=== PATIENT | male | born 1955 | race Caucasian/White ===

== ENCOUNTER → 2016-12-20 | Outpatient (CLI) | payer BC ==
[~2016-12-20] MED LIST: ATOR-24 PO; LISI-787 PO; PRLSR20 PO
[2016-12-20 17:06] LABS: BASO % 0.1 %; BASO ABS # 0.01 K/uL (0-0.2); COMPLETE YES; EOS % 0.5 %; IG% 0.3 %; LYMPH % 18.1 %; LYMPH ABS # 1.34 K/uL (1.2-3.4); MEAN CELL VOLUME 89.7 fL (80-100); MEAN CORPUSCULAR HEMOGLOBIN 31.2 pg (25-34); MEAN CORPUSCULAR HGB CONC 34.8 g/dl (32-36); MEAN PLATELET VOLUME 10.2 fL (7.4-10.4); MONO % 10.4 %; NEUT % 70.6 %; PLATELET COUNT 254 K/uL (130-400); RED BLOOD COUNT 5.13 M/uL (4.7-6.1); WHITE BLOOD COUNT 7.39 K/uL (4.8-10.8)
[2016-12-20 17:07] LABS: URINE APPEARANCE CLEAR (CLEAR); URINE BILIRUBIN NEG (NEG); URINE COLOR YELLOW; URINE EPITHELIAL CELL AUTO 0-5 /lpf (0-5); URINE NITRITE NEG (NEG); URINE SPECIFIC GRAVITY 1.013 (1.000-1.030); UROBILINOGEN NEG (NEG)
[2016-12-20 17:13] LABS: BLOOD UREA NITROGEN 17 mg/dl (7-18); BUN/CREATININE RATIO 14.6 (10-20); CALCIUM 9.3 mg/dl (8.5-10.1); CARBON DIOXIDE 33 mmol/L (21-32); CHLORIDE 105 mmol/L (98-107); GLUCOSE 82 mg/dl (70-99); POTASSIUM 3.8 mmol/L (3.5-5.1); SODIUM 142 mmol/L (136-145)
[2016-12-20 17:15] LABS: MANUAL MICROSCOPIC REQUIRED? NO; REVIEW REQ? NO
== END | disposition home or self-care (01) ==
LOC: C.LABBC 14:52
PROVIDERS: ATTEND Physician Assistant Medical
DX: R42 Dizziness and giddiness (principal)

== ENCOUNTER → 2017-11-14 | Outpatient (CLI) | payer BC ==
[2017-11-14 14:04] LABS: HEMOGLOBIN A1C 5.7 % (4.5-5.6)
[2017-11-14 14:23] LABS: ALBUMIN 4.1 gm/dl (3.4-5.0); ALT/SGPT 31 U/L (12-78); AST/SGOT 15 U/L (15-37); BLOOD UREA NITROGEN 20 mg/dl (7-18); CALCIUM 9.2 mg/dl (8.5-10.1); CARBON DIOXIDE 29 mmol/L (21-32); GLUCOSE 84 mg/dl (70-99); POTASSIUM 3.9 mmol/L (3.5-5.1); SODIUM 138 mmol/L (136-145)
[2017-11-14 14:28] LABS: ALKALINE PHOSPHATASE 84 U/L (45-117); CHOLESTEROL 145 mg/dl (0-200); LDL CHOLESTEROL CALCULATED 78 mg/dl; TOTAL PROTEIN 7.6 gm/dl (6.4-8.2)
== END | disposition home or self-care (01) ==
LOC: C.LABBC 11:29
PROVIDERS: ATTEND Nurse Practitioner Adult Health
DX: R31.9 Hematuria, unspecified (principal); E78.5 Hyperlipidemia, unspecified; I10 Essential (primary) hypertension; Z12.5 Encounter for screening for malignant neoplasm of prostate; R20.2 Paresthesia of skin; R73.09 Other abnormal glucose

== ENCOUNTER → 2017-12-05 | Outpatient (CLI) | payer BC ==
[2017-12-05 15:48] LABS: BLOOD UREA NITROGEN 21 mg/dl (7-18); CALCIUM 9.6 mg/dl (8.5-10.1); CARBON DIOXIDE 31 mmol/L (21-32); CREATININE 1.33 mg/dl (0.60-1.40); GLUCOSE 94 mg/dl (70-99); SODIUM 140 mmol/L (136-145)
== END | disposition home or self-care (01) ==
LOC: C.LABBC 10:36
PROVIDERS: ATTEND Nurse Practitioner Adult Health
DX: I10 Essential (primary) hypertension (principal)

== ENCOUNTER 2021-03-28 22:48 | Observation (INO) ==
[2021-03-28] MEDS ORDERED: SODIUM CHLORIDE 0.9% 1000ML 1,000 ML IV ONE (23:16)
--- NOTE | 2021-03-28 23:21 | Emergency Department Note ---
History of Present Illness General Chief complaint: Hypertension Stated complaint: BLOOD PRESSURE ALL OVER THE PLACE Time Seen by Provider: 03/28/21 23:03 Source: patient and family Mode of arrival: ambulatory Limitations: no limitations History of Present Illness Provider complaint: Elevated blood pressure, sent from urgent care Associated symptoms: + denies other symptoms Treatments prior to arrival: none This is a 66-year-old male presents emergency department after being seen and referred from a local urgent care for elevated blood pressure. Patient with longstanding history of high blood pressure and has been medicated for at least 10 years. Patient's blood pressure controlled by his PCP. Patient states he has been working outside for quite some time this afternoon between 4 and 5pm, noticed afterward that he did not appear well. She took his blood pressure at home and his systolic was in the 150s. Due to concern for this being elevated compared to his normal, they went to urgent care, and there the blood pressure was in the 160s. They also performed an EKG. They were told to come the emergency room for additional evaluation. She feels he has been more fatigued recently however he denies. At the time of this exertion he denies any accompanying headaches, dizziness, vision changes, chest pain, trouble courtney thing, palpitations, abdominal pain, nausea. Denies any recent leg swelling. Patient states he has been taking his blood pressure medication as prescribed and takes all 3 medications in the morning. Patient feels he is drinking water however chimes in that he drinks a lot of iced tea in lieu of water. No recent illness, fevers or chills. Patient did undergo previous evaluation for hematuria including a CT which was revealed in the EMR. Patient with a history of BPH. No other cardiac history, no prior echo. Patient does also take medication for hyperlipidemia. Patient states he has been taking sinus medication recently for nasal congestion. Patient states that is [id number], states it was specific for sinus and not just for seasonal allergies. Did not take any today. Pt seen during a time of high acuity and national emergency pandemic while wearing PPE. Home Medications Medication Instructions Recorded Confirmed Type omeprazole magnesium 20 mg 20 mg PO DAILY 06/07/19 03/29/21 History tablet,delayed release lisinopril 10 mg tablet 10 mg PO DAILY #90 tab 09/05/20 03/29/21 Rx lisinopril 20 1 tab PO DAILY #90 tab 09/05/20 03/29/21 Rx mg-hydrochlorothiazide 25 mg tablet amlodipine 5 mg tablet 5 mg PO DAILY #30 tab 03/03/21 03/29/21 Rx atorvastatin 40 mg PO DAILY 03/29/21 03/29/21 History calcium carbonate [Tums E-X] 300 mg PO DIRECTED PRN 03/29/21 03/29/21 History carvedilol 12.5 mg PO BID #60 tab 03/29/21 Rx Allergies Allergy/AdvReac Type Severity Reaction Status Date / Time No Known Allergies Allergy Verified 03/29/21 00:03 Past Med/Surg History Medical History Acid reflux disease Allergic rhinitis Dyslipidemia [email or web address] Hematuria +1 noted on UA 2016 and 2018. No urology notes in [employer]. Hypertension Obesity (BMI 30-39.9) Paresthesias Prediabetes Surgical History H/O wisdom tooth extraction History of colonoscopy (08/13/15) Adenomatous polyp x 1. F/U 07/2020. 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 and A total of 10 systems reviewed and were otherwise negative Physical Exam Vital Signs Vital Signs - 24 hr 03/28/21 22:52 03/28/21 23:15 03/28/21 23:20 Temperature 36.8 C Temperature Source Temporal Artery Scan Pulse Rate 99 H 94 H 85 Pulse Rate from SpO2 Sensor 92 H 85 Respiratory Rate 20 15 19 Respiratory Effort / Characteristics Non-Labored Respiratory Depth Normal Blood Pressure 209/100 H 180/113 H Blood Pressure Mean 136 135 Pulse Oximetry 96 99 97 Oxygen Delivery Method Room Air Sepsis Recent Fever Within 48 Hours No Sepsis New/Unexplained Change in Mental Status N/A Sepsis Action Taken by Nursing No Action Required 03/28/21 23:30 03/28/21 23:31 03/28/21 23:40 Temperature Temperature Source Pulse Rate 87 86 85 Pulse Rate from SpO2 Sensor 87 87 85 Respiratory Rate 18 18 12 Respiratory Effort / Characteristics Respiratory Depth Blood Pressure 172/95 H Blood Pressure Mean 120 Pulse Oximetry 97 97 95 Oxygen Delivery Method Sepsis Recent Fever Within 48 Hours Sepsis New/Unexplained Change in Mental Status Sepsis Action Taken by Nursing 03/28/21 23:45 03/28/21 23:50 03/29/21 00:00 Temperature Temperature Source Pulse Rate 80 89 86 Pulse Rate from SpO2 Sensor 82 90 85 Respiratory Rate 18 14 18 Respiratory Effort / Characteristics Respiratory Depth Blood Pressure 173/90 H 181/87 H Blood Pressure Mean 117 118 Pulse Oximetry 97 96 95 Oxygen Delivery Method Sepsis Recent Fever Within 48 Hours Sepsis New/Unexplained Change in Mental Status Sepsis Action Taken by Nursing 03/29/21 00:01 Temperature Temperature Source Pulse Rate 85 Pulse Rate from SpO2 Sensor 85 Respiratory Rate 18 Respiratory Effort / Characteristics Respiratory Depth Blood Pressure Blood Pressure Mean Pulse Oximetry 97 Oxygen Delivery Method Sepsis Recent Fever Within 48 Hours Sepsis New/Unexplained Change in Mental Status Sepsis Action Taken by Nursing GENERAL: alert, uncomfortable appearing, well nourished, no distress, non-toxic EYE EXAM: normal conjunctiva, PERRL and EOM's grossly intact, no nystagmus OROPHARYNX: no exudate, no erythema, lips, buccal mucosa, and tongue normal and mucous membranes are moist NECK: supple, no nuchal rigidity, no adenopathy, non-tender LUNGS: Clear to auscultation. Normal chest wall mechanics, no w/r/r HEART: no murmurs, S1 normal and S2 normal ABDOMEN: abdomen soft, non-tender, normo-active bowel sounds, no masses, no rebound or guarding. BACK: Back is symmetrical on inspection and there is no deformity, no midline tenderness, no CVA tenderness. SKIN: no rashes and no bruising UPPER EXTREMITIES: upper extremities are grossly normal. FROM, nml pulses b/l. LOWER EXTREMITIES: No pitting edema. FROM, nml pulses b/l. NEURO EXAM: Normal sensorium, cranial nerves II-XII grossly intact, normal speech, no facial droop, no gross weakness of arms, no gross weakness of legs. Gross sensation intact. No ataxia. Course Course 0045: Patient updated on results at bedside. Patient here is ill-appearing and tremulous. Blood pressure higher compared to prior despite 1 L of fluids and blankets. With additional conversation with he and at bedside, patient admits to exertional symptoms of chest discomfort and shortness of breath which is what prompted him to stop and sit down when the initially found him looking unwell. No prior cardiac evaluation. 0100: Discussed with hospitalist. Administered Medications Discontinued Medications Amlodipine Besylate (Amlodipine Besylate 5 Mg Tab) 5 mg PO DAILY ON LICENSE OF [facility] Stop: 04/28/21 08:59 Last Admin: 03/29/21 08:02 Dose: 5 mg Documented by: [id number] Aspirin (Aspirin 325 Mg Ectab) 325 mg PO NOW STA Stop: 03/29/21 00:51 Last Admin: 03/29/21 01:04 Dose: 325 mg Documented by: [id number] Aspirin (Aspirin 81 Mg Ectab) 81 mg PO QAM SAIMA Stop: 04/28/21 08:59 Last Admin: 03/29/21 08:03 Dose: 81 mg Documented by: [id number] Atorvastatin Calcium (Atorvastatin 40 Mg Tab) 40 mg PO DAILY SAIMA Stop: 04/28/21 08:59 Last Admin: 03/29/21 08:02 Dose: 40 mg Documented by: [id number] Carvedilol (Carvedilol 6.25 Mg Tab) 6.25 mg PO BID ON LICENSE OF [facility] Stop: 04/28/21 08:59 Last Admin: 03/29/21 08:03 Dose: 6.25 mg Documented by: [id number] Carvedilol (Carvedilol 3.125 Mg Tab) 6.25 mg PO NOW ONE Stop: 03/29/21 01:29 Last Admin: 03/29/21 01:34 Dose: 6.25 mg Documented by: [id number] Carvedilol (Carvedilol 3.125 Mg Tab) 3.125 mg PO NOW ONE Stop: 03/29/21 13:31 Last Admin: 03/29/21 14:01 Dose: 3.125 mg Documented by: [id number] Lisinopril/HCTZ (Lisinopril/Hctz 20/25mg 1 Tab) 1 tab PO DAILY SAIMA Stop: 04/28/21 08:59 Last Admin: 03/29/21 08:02 Dose: 1 tab Documented by: [id number] Sodium Chloride (Nss 1000ml) 1,000 mls @ 999 mls/hr IV .Q1H1M ONE Stop: 03/29/21 00:16 Last Infusion: 03/29/21 00:22 Dose: 999 mls/hr Documented by: [id number] Admin: 03/28/21 23:19 Dose: 999 mls/hr Documented by: [id number] Labetalol HCl (Labetalol Hcl Iv 5 Mg/Ml 20ml) 5 mg IV NOW STA Stop: 03/29/21 00:40 Last Admin: 03/29/21 00:50 Dose: 5 mg Documented by: [id number] Cosigned by: [id number] Lisinopril (Lisinopril 10 Mg Tab) 10 mg PO DAILY SAIMA Stop: 04/28/21 08:59 Last Admin: 03/29/21 08:02 Dose: 10 mg Documented by: [id number] Pantoprazole Sodium (Pantoprazole 40 Mg Tab) 40 mg PO DAILY SAIMA Stop: 04/28/21 08:59 Last Admin: 03/29/21 08:03 Dose: 40 mg Documented by: [id number] Medical Decision Making Differential Diagnosis Differential: Benign Hypertension, Hypertensive Urgency/Emergency, Cardiovascular Pathology, Endocrine, Metabolic/Electrolyte, Renal Disease, End organ Damage, amongst other pathologies entertained. Medical Records Attestation: I reviewed the patient's medical records. Home Medications Current Medication List: was personally reviewed by me Laboratory Data Attestation: I reviewed the patient's lab results. Result diagrams: 03/29/21 07:18 03/29/21 07:18 Lab Results 03/28/21 03/28/21 03/28/21 Range/Units 23:16 23:16 23:16 WBC 9.27 (4.8-10.8) K/uL RBC 4.82 (4.7-6.1) M/uL Hgb 15.4 (14.0-18.0) g/dL Hct 44.0 (42-52) % MCV 91.3 (80-100) fL MCH 32.0 (25-34) pg MCHC 35.0 (32-36) g/dL RDW Std Deviation 44.4 (36.4-46.3) fL RDW Coeff of Mayela 13.3 (11.5-14.5) % Plt Count 247 (130-400) K/uL MPV 9.9 (7.4-10.4) fL Immature Gran % (Auto) 0.3 % Neut % (Auto) 77.7 % Lymph % (Auto) 13.1 % [place] % (Auto) 7.8 % Eos % (Auto) 0.9 % Baso % (Auto) 0.2 % Neut # (Auto) 7.21 H (1.4-6.5) K/uL Lymph # (Auto) 1.21 (1.2-3.4) K/uL [place] # (Auto) 0.72 H (0.11-0.59) K/uL Eos # (Auto) 0.08 (0-0.5) K/uL Baso # (Auto) 0.02 (0-0.2) K/uL Immature Gran # (Auto) 0.03 H (0.00-0.02) K/uL Sodium 136 (136-145) mmol/L Potassium 3.5 (3.5-5.1) mmol/L Chloride 105 (98-107) mmol/L Carbon Dioxide 26 (21-32) mmol/L Anion Gap 6.0 (3-11) BUN 24 H (7-18) mg/dl Creatinine 1.43 H (0.6-1.4) mg/dl Est Cr Clr Drug Dosing 64.1 ml/min Est GFR ( Amer) 58.3 ml/min Est GFR (Non-Af Amer) 50.3 ml/min BUN/Creatinine Ratio 16.6 (10-20) Glucose 93 (70-99) mg/dl Calcium 9.7 (8.5-10.1) mg/dl Magnesium 2.1 (1.8-2.4) mg/dl Total Bilirubin 1.5 H (0.2-1) mg/dl AST 25 (15-37) U/L ALT 33 (12-78) U/L Alkaline Phosphatase 87 (45-117) U/L Troponin I < 0.015 (0-0.045) ng/ml NT-Pro-B Natriuret Pep 74 (0-900) pg/ml Total Protein 8.3 H (6.4-8.2) gm/dl Albumin 4.5 (3.4-5.0) gm/dl Globulin 3.8 (2.5-4.0) gm/dl Albumin/Globulin Ratio 1.2 (0.9-2) TSH 0.749 (0.300-4.500) uIu/ml Lyme Disease IgG Ab Negative (Negative) Lyme Disease IgM Ab Negative (Negative) COVID-19 Eval Order SARS-CoV-2 (PCR) (Negative) 03/29/21 03/29/21 Range/Units 00:52 00:52 WBC (4.8-10.8) K/uL RBC (4.7-6.1) M/uL Hgb (14.0-18.0) g/dL Hct (42-52) % MCV (80-100) fL MCH (25-34) pg MCHC (32-36) g/dL RDW Std Deviation (36.4-46.3) fL RDW Coeff of Maeyla (11.5-14.5) % Plt Count (130-400) K/uL MPV (7.4-10.4) fL Immature Gran % (Auto) % Neut % (Auto) % Lymph % (Auto) % [place] % (Auto) % Eos % (Auto) % Baso % (Auto) % Neut # (Auto) (1.4-6.5) K/uL Lymph # (Auto) (1.2-3.4) K/uL [place] # (Auto) (0.11-0.59) K/uL Eos # (Auto) (0-0.5) K/uL Baso # (Auto) (0-0.2) K/uL Immature Gran # (Auto) (0.00-0.02) K/uL Sodium (136-145) mmol/L Potassium (3.5-5.1) mmol/L Chloride (98-107) mmol/L Carbon Dioxide (21-32) mmol/L Anion Gap (3-11) BUN (7-18) mg/dl Creatinine (0.6-1.4) mg/dl Est Cr Clr Drug Dosing ml/min Est GFR ( Amer) ml/min Est GFR (Non-Af Amer) ml/min BUN/Creatinine Ratio (10-20) Glucose (70-99) mg/dl Calcium (8.5-10.1) mg/dl Magnesium (1.8-2.4) mg/dl Total Bilirubin (0.2-1) mg/dl AST (15-37) U/L ALT (12-78) U/L Alkaline Phosphatase (45-117) U/L Troponin I (0-0.045) ng/ml NT-Pro-B Natriuret Pep (0-900) pg/ml Total Protein (6.4-8.2) gm/dl Albumin (3.4-5.0) gm/dl Globulin (2.5-4.0) gm/dl Albumin/Globulin Ratio (0.9-2) TSH (0.300-4.500) uIu/ml Lyme Disease IgG Ab (Negative) Lyme Disease IgM Ab (Negative) COVID-19 Eval Order Covid19 at [facility] SARS-CoV-2 (PCR) NEGATIVE (Negative) Imaging Data Radiologist's Impression: Chest X-Ray 03/28/21 23:17 SINGLE VIEW CHEST CLINICAL HISTORY: Hypertension. FINDINGS: An AP, portable, upright chest radiograph is obtained No prior studies are available for comparison at the time of dictation. The examination is mildly degraded by portable technique and patient rotation. The heart is top normal for projection noting atherosclerotic calcification of the thoracic aorta. The pulmonary vasculature is noncongested. The lungs and pleural spaces are clear. No pneumothorax is seen. The bony thorax is grossly intact. IMPRESSION: No acute cardiopulmonary abnormality. ACT 112: Negative or not required by law. Electronically signed by: Seng Dorsey M.D. 03/28/2021 11:29 PM ECG Data Attestation: I personally reviewed and interpreted this ECG as follows: Indication: + other Rate (beats per minute): 91 Rhythm: + normal sinus ECG Intervals/blocks: + Normal QRS and + Normal QT ECG [place]: + Normal ECG ST segments: + T-wave inversions (III only) MDM Narrative HEART score 5 This is a 66-year-old who presents emergency department with due to concern for elevated blood pressure reading as measured at an outpatient urgent care. Patient does have longstanding history of hypertension, no other cardiac history. Patient's blood pressure here was markedly elevated, patient initially denied any symptoms. is stated she saw the patient appearing ill and holdi ng his chest earlier in the day which prompted her to check his blood pressure. With additional bedside questioning, patient finally admitted to a chest discomfort although denies overt pain as well as shortness of breath while he was working outside which prompted him to stop. We did discuss risk factors surrounding high blood pressure as well as potential complications if untreated. Patient stated he was taking his medications. does mention he is not always adherent to a low-salt diet. Patient has also been recently taking medications for sinus congestion although denies using those today. Patient's EKG and labs are reassuring, patient had persistent high blood pressure. Due to elevated heart score and concern for worsening blood pressure readings here, I discussed with him potential benefits of inpatient evaluation and management. Patient and verbalized understanding were in agreement with plan. No evidence at this time of hypertensive emergency. I do not suspect occult [employer] pathology. No ectopy or dysrhythmia noted on telemetry. I do not suspect dissection, increased thoracic aneurysm, tamponade, pericardial effusion, occult infectious etiology. Mildly elevated creatinine noted, unclear if related to dehydration and use of certain medications which are renally processed. I did review CT from January as part of the patient's hematuria work-up, no evidence of nephrolithiasis or ureterolithiasis, kidney is otherwise well-appearing. No AAA noted at that time either. An order was placed for continuous cardiac monitoring. The monitor shows a rate of _92_ with _normal sinus_ rhythm. Impression & Plan Hypertension, Chest discomfort, GIRALDO (dyspnea on exertion) Discharge Plan Visit Data Chief Complaint: Hypertension Stated Complaint: BLOOD PRESSURE ALL OVER THE PLACE ED Provider: Blank Early Discharge Problem: Hypertension, Chest discomfort, GIRALDO (dyspnea on exertion) Patient Disposition: Home - Self-Care Condition: Good Discharge Instructions Interventions: ED Discharge Assessment Last Done: 03/29/21 03:18 Discharge Problem: Hypertension Qualifiers: Hypertension type: primary hypertension Qualified Code(s): I10 - Essential (primary) hypertension
--- NOTE | 2021-03-28 23:31 | XRay Report ---
SINGLE VIEW CHEST CLINICAL HISTORY: Hypertension. FINDINGS: An AP, portable, upright chest radiograph is obtained No prior studies are available for co mparison at the time of dictation. The examination is mildly degraded by portable technique and patie nt rotation. The heart is top normal for projection noting atherosclerotic calcification of the thora cic aorta. The pulmonary vasculature is noncongested. The lungs and pleural spaces are clear. No pneu mothorax is seen. The bony thorax is grossly intact. IMPRESSION: No acute cardiopulmonary abnormality. ACT 112: Negative or not required by law. Electronically signed by: Seng Dorsey M.D. 03/28/2021 11:29 PM
[2021-03-28 23:43] LABS: Basophils # (auto) 0.02 K/uL (0-0.2); Basophils % (auto) 0.2 %; Eosinophils # (auto) 0.08 K/uL (0-0.5); Eosinophils % (auto) 0.9 %; Hemoglobin 15.4 g/dL (14.0-18.0); Immature Granulocytes # (auto) 0.03 K/uL (0.00-0.02); Immature Granulocytes % (auto) 0.3 %; Lymphocytes # (auto) 1.21 K/uL (1.2-3.4); Lymphocytes % (auto) 13.1 %; Mean Corpuscular Volume 91.3 fL (80-100); Mean Platelet Volume 9.9 fL (7.4-10.4); Monocytes # (auto) 0.72 K/uL (0.11-0.59); Monocytes % (auto) 7.8 %; Neutrophils # (auto) 7.21 K/uL (1.4-6.5); Neutrophils % (auto) 77.7 %; Platelet Count 247 K/uL (130-400); RDW Coefficient of Variation 13.3 % (11.5-14.5); RDW Standard Deviation 44.4 fL (36.4-46.3); Red Blood Count 4.82 M/uL (4.7-6.1); White Blood Count 9.27 K/uL (4.8-10.8)
[2021-03-28 23:50] LABS: Alanine Aminotransferase 33 U/L (12-78); Albumin Level 4.5 gm/dl (3.4-5.0); Aspartate Aminotransferase 25 U/L (15-37); BUN Creatinine Ratio 16.6 (10-20); Blood Urea Nitrogen 24 mg/dl (7-18); Calcium 9.7 mg/dl (8.5-10.1); Carbon Dioxide 26 mmol/L (21-32); Chloride 105 mmol/L (98-107); Creatinine Clr Calc Pharmacy 64.1 ml/min; Est GFR (African American) 58.3 ml/min; Est GFR (Non-African American) 50.3 ml/min; Glucose 93 mg/dl (70-99); Magnesium 2.1 mg/dl (1.8-2.4); Potassium 3.5 mmol/L (3.5-5.1); Sodium 136 mmol/L (136-145)
[2021-03-29 00:01] LABS: Albumin Globulin Ratio 1.2 (0.9-2); Alkaline Phosphatase 87 U/L (45-117); Bilirubin,Total 1.5 mg/dl (0.2-1); Globulin 3.8 gm/dl (2.5-4.0); NT Pro B Type Natriuretic Pept 74 pg/ml (0-900); Thyroid Stimulating Hormone 0.749 uIu/ml (0.300-4.500); Total Protein 8.3 gm/dl (6.4-8.2); Troponin I < 0.015 ng/ml (0-0.045)
[2021-03-29 00:17] LABS: Lyme Ab IgG w/WB Rflx Negative (Negative); Lyme Ab IgM w/WB Rflx Negative (Negative)
[2021-03-29] MEDS ORDERED: LABETALOL HCL IV 5 MG/ML 20ML IV STA (00:39)
[2021-03-29] MEDS ORDERED: ASPIRIN 325 MG ECTAB PO STA (00:50)
[2021-03-29] MEDS ORDERED: carvediloL 3.125 MG TAB PO ONE ×2 (01:28→13:30)
--- NOTE | 2021-03-29 01:46 | History & Physical Report ---
Date of Service March 29, 2021 Assessment & Plan (1) Chest discomfort: Chest discomfort/uncontrolled hypertension- The patient will be admitted to telemetry for serial cardiac enzymes, serial EKG's, cardiac rhythm monitoring and a 2-D echocardiogram with Dopplers. Continue amlodipine 5 mg daily, lisinopril 10 mg daily and lisinopril/HCTZ 20/25 daily. Add carvedilol 6.25 mg p.o. twice daily with first dose now. Titrate as needed Lopressor 5 mg IV every 4 hours as needed systolic blood pressure greater than 150 Discussed improving diet by watching salt intake Present on Admission?: Yes (2) Hypertension: See above Present on Admission?: Yes (3) Dyslipidemia: Continue atorvastatin 40 mg daily Check a fasting lipid panel Present on Admission?: Yes (4) Prediabetes: Glucose 93 upon admission. Check hemoglobin A1c Present on Admission?: Yes (5) Acid reflux disease: Continue omeprazole/pantoprazole Present on Admission?: Yes (6) BPH (benign prostatic hyperplasia): On no specific treatment at this time and no complaints Present on Admission?: Yes History of Present Illness Chief Complaint: The patient presents to the emergency department, with his , with complaint of chest discomfort, lightheadedness and dizziness that developed when he is outside working in the yard. Primary Care Provider: Hiro Haskins DO The patient is a 66-year-old male with a past medical history including BPH, hematuria, obesity, GERD, dyslipidemia, hematuria, hypertension, paresthesias and prediabetes. He was out in the yard working with his today on a relatively hot day, and she noted that he had his hand over left side of his chest, looked pale, and was short of breath and at that time he reports he was lightheaded and dizzy and had chest discomfort. He also notes that he can feel his heart pounding in the chest for a few minutes, which then seemed to settle down after he went back inside. When he went back inside to check his blood pressure and appeared to be higher than usual with systolic around 150. He then went to an acute care facility where his systolic blood pressure was up to 160, and they referred him to the ED for assessment. The patient reports that he had similar episodes in the past, though that was very minor and did not trigger any concerns. He and his note that he may not have kept up with his fluid intake as much as she should have today also. Allergies Allergy/AdvReac Type Severity Reaction Status Date / Time No Known Allergies Allergy Verified 03/29/21 00:03 Home Medications Medication Instructions Recorded Confirmed Type omeprazole magnesium 20 mg 20 mg PO DAILY 06/07/19 03/29/21 History tablet,delayed release lisinopril 10 mg tablet 10 mg PO DAILY #90 tab 09/05/20 03/29/21 Rx lisinopril 20 1 tab PO DAILY #90 tab 09/05/20 03/29/21 Rx mg-hydrochlorothiazide 25 mg tablet amlodipine 5 mg tablet 5 mg PO DAILY #30 tab 03/03/21 03/29/21 Rx atorvastatin 40 mg PO DAILY 03/29/21 03/29/21 History calcium carbonate [Tums E-X] 300 mg PO DIRECTED PRN 03/29/21 03/29/21 History Past Med/Surg History Medical History Acid reflux disease Allergic rhinitis Dyslipidemia [email or web address] Hematuria +1 noted on UA 2016 and 2017. No urology notes in [employer]. Hypertension Obesity (BMI 30-39.9) Paresthesias Prediabetes Surgical History H/O wisdom tooth extraction History of colonoscopy (08/13/15) Adenomatous polyp x 1. F/U 07/2020. Family History Father Hypertension Stroke Mother Breast cancer Denies family history of Ovarian cancer Prostate cancer Diabetes Myocardial infarction Lung cancer Colorectal cancer Social History Smoking Status: Never smoker Hx Alcohol Use: Yes Hx Substance Use: No Preferred Language: Slovak Visual Impairment: No Limitations Hearing Ability: Normal marital status: Current Living Situation: Family current occupation: son and daughter Feels Safe at Home: Yes Childhood Exposure to Second-Hand Smoke: Yes caffeine: Yes Dental Care, Regularly: Yes Physical Activity Frequency: 1-2 Times per Week Seatbelt Use: always Sunscreen Use: No Review of Systems Review of Systems: The patient denies shortness of breath, dyspnea on exerti on, cough, lower extremity swelling, sore throat, fevers, chills, sweats, nausea, vomiting, diarrhea , constipation, abdominal pain, pelvic pain, blood in urine or stool, dysuria, urinary frequency or urgency, memory loss, loss of consciousness, rash, abnormal bruising or bleeding, imbalance, focal or generalized weakness, numbness or tingling in arms or legs, generalized arthralgias or myalgias, back or neck pain, or night sweats. The review of systems is otherwise negative other than for that already noted above, and at least 10 systems have been reviewed. Physical Exam Physical Exam: The patient is awake, alert and oriented 3, well developed and well nourished, normocephalic and atraumatic, lying in bed and in no acute distress. HEENT--PERRL, EOMI, mucous membranes and oropharynx dry. Neck--supple. No JVD. No bruits. Thyroid normal, trachea midline, no adenopathy. Heart--normal S1 and S2. No murmurs, rubs or gallops. Lungs--clear bilaterally, no respiratory distress, no accessory muscle use. Abdomen--normal bowel sounds and soft. Nontender. Nondistended. Obese Extremities--no cyanosis or clubbing. Trace to 1+ bilateral pretibial pitting edema. Dermatologic--normal skin turgor, normal color, no abnormal lymph nodes, no rash. Neurologic--cranial nerves II through XII grossly intact. Rheumatologic--normal range of motion. Psychiatric--normal affect. Results & Data Results & Data ([facility]) Vital Signs (Past 12 Hours) Vital Signs Temp Pulse Resp BP Pulse Ox 03/29/21 01:20 95 H 21 98 03/29/21 01:15 95 H 15 199/118 H 95 03/29/21 01:10 91 H 19 98 03/29/21 01:08 91 H 12 201/109 H 94 03/29/21 01:00 92 H 23 186/105 H 96 03/29/21 00:50 98 H 6 L 96 03/29/21 00:45 109 H 22 232/109 H 97 03/29/21 00:40 105 H 13 98 03/29/21 00:36 102 H 23 207/109 H 98 03/29/21 00:30 111 H 26 H 95 03/29/21 00:20 92 H 8 L 97 03/29/21 00:15 98 H 8 L 193/103 H 96 03/29/21 00:10 94 H 16 97 03/29/21 00:01 85 18 97 03/29/21 00:00 86 18 181/87 H 95 03/28/21 23:50 89 14 96 03/28/21 23:45 80 18 173/90 H 97 03/28/21 23:40 85 12 95 03/28/21 23:31 86 18 97 03/28/21 23:30 87 18 172/95 H 97 03/28/21 23:20 85 19 97 03/28/21 23:15 94 H 15 180/113 H 99 03/28/21 22:52 98.2 F 99 H 20 209/100 H 96 Laboratory Results Laboratory Results WBC 9.27 K/uL (4.8-10.8) 03/28/21 23:16 RBC 4.82 M/uL (4.7-6.1) 03/28/21 23:16 Hgb 15.4 g/dL (14.0-18.0) 03/28/21 23:16 Hct 44.0 % (42-52) 03/28/21 23:16 MCV 91.3 fL (80-100) 03/28/21 23:16 MCH 32.0 pg (25-34) 03/28/21 23:16 MCHC 35.0 g/dL (32-36) 03/28/21 23:16 RDW Std Deviation 44.4 fL (36.4-46.3) 03/28/21 23:16 RDW Coeff of Mayela 13.3 % (11.5-14.5) 03/28/21 23:16 Plt Count 247 K/uL (130-400) 03/28/21 23:16 MPV 9.9 fL (7.4-10.4) 03/28/21 23:16 Immature Gran % (Auto) 0.3 % 03/28/21 23:16 Neut % (Auto) 77.7 % 03/28/21 23:16 Lymph % (Auto) 13.1 % 03/28/21 23:16 Sauk % (Auto) 7.8 % 03/28/21 23:16 Eos % (Auto) 0.9 % 03/28/21 23:16 Baso % (Auto) 0.2 % 03/28/21 23:16 Neut # (Auto) 7.21 K/uL (1.4-6.5) H 03/28/21 23:16 Lymph # (Auto) 1.21 K/uL (1.2-3.4) 03/28/21 23:16 Sauk # (Auto) 0.72 K/uL (0.11-0.59) H 03/28/21 23:16 Eos # (Auto) 0.08 K/uL (0-0.5) 03/28/21 23:16 Baso # (Auto) 0.02 K/uL (0-0.2) 03/28/21 23:16 Immature Gran # (Auto) 0.03 K/uL (0.00-0.02) H 03/28/21 23:16 Sodium 136 mmol/L (136-145) 03/28/21 23:16 Potassium 3.5 mmol/L (3.5-5.1) 03/28/21 23:16 Chloride 105 mmol/L (98-107) 03/28/21 23:16 Carbon Dioxide 26 mmol/L (21-32) 03/28/21 23:16 Anion Gap 6.0 (3-11) 03/28/21 23:16 BUN 24 mg/dl (7-18) H 03/28/21 23:16 Creatinine 1.43 mg/dl (0.6-1.4) H 03/28/21 23:16 Est Cr Clr Drug Dosing 64.1 ml/min 03/28/21 23:16 Est GFR ( Amer) 58.3 ml/min 03/28/21 23:16 Est GFR (Non-Af Amer) 50.3 ml/min 03/28/21 23:16 BUN/Creatinine Ratio 16.6 (10-20) 03/28/21 23:16 Glucose 93 mg/dl (70-99) 03/28/21 23:16 Calcium 9.7 mg/dl (8.5-10.1) 03/28/21 23:16 Magnesium 2.1 mg/dl (1.8-2.4) 03/28/21 23:16 Total Bilirubin 1.5 mg/dl (0.2-1) H 03/28/21 23:16 AST 25 U/L (15-37) 03/28/21 23:16 ALT 33 U/L (12-78) 03/28/21 23:16 Alkaline Phosphatase 87 U/L (45-117) 03/28/21 23:16 Troponin I < 0.015 ng/ml (0-0.045) 03/28/21 23:16 NT-Pro-B Natriuret Pep 74 pg/ml (0-900) 03/28/21 23:16 Total Protein 8.3 gm/dl (6.4-8.2) H 03/28/21 23:16 Albumin 4.5 gm/dl (3.4-5.0) 03/28/21 23:16 Globulin 3.8 gm/dl (2.5-4.0) 03/28/21 23:16 Albumin/Globulin Ratio 1.2 (0.9-2) 03/28/21 23:16 TSH 0.749 uIu/ml (0.300-4.500) 03/28/21 23:16 Lyme Disease IgG Ab Negative (Negative) 03/28/21 23:16 Lyme Disease IgM Ab Negative (Negative) 03/28/21 23:16 COVID-19 Eval Order Covid19 at [facility] 03/29/21 00:52 SARS-CoV-2 (PCR) NEGATIVE (Negative) 03/29/21 00:52 Impressions Chest X-Ray 03/28/21 23:17 SINGLE VIEW CHEST CLINICAL HISTORY: Hypertension. FINDINGS: An AP, portable, upright chest radiograph is obtained No prior studies are available for comparison at the time of dictation. The examination is mildly degraded by portable technique and patient rotation. The heart is top normal for projection noting atherosclerotic calcification of the thoracic aorta. The pulmonary vasculature is noncongested. The lungs and pleural spaces are clear. No pneumothorax is seen. The bony thorax is grossly intact. IMPRESSION: No acute cardiopulmonary abnormality. ACT 112: Negative or not required by law. Electronically signed by: Seng Dorsey M.D. 03/28/2021 11:29 PM Code Status & VTE Plan Code Status Full code VTE Prophylaxis Plan VTE Prophylaxis will be ordered: Yes PG Care Time/CCT Total # of Minutes Spent Total Time Spent with Patient: Total time spent is greater than 50% in coordination of care (as documented) at patient's floor/unit and/or counseling patient: Coding Level of Care Code 10028 OBS Care - Level 3 Diagnoses Chest discomfort R07.89 Hypertension I10 Hypertension type: primary hypertension Dyslipidemia E78.5 Prediabetes R73.03 Acid reflux disease K21.9 BPH (benign prostatic hyperplasia) N40.0 (1) Hypertension Hypertension type: primary hypertension Qualified Code(s): I10 - Essential (primary) hypertension
[2021-03-29] MEDS ORDERED: ACETAMINOPHEN 325 MG TAB PO PRN (03:35)
[2021-03-29] MEDS ORDERED: METOPROLOL TARTRATE 1 MG/ML VIAL IV PRN (03:35)
[2021-03-29] MEDS ORDERED: ONDANSETRON INJ 2 MG/ML 2 ML VIAL IV PRN (03:35)
[2021-03-29] MEDS ORDERED: CALCIUM CARBONATE 500 MG CHEWABLE TAB PO PRN (03:59)
[2021-03-29 07:38] LABS: Basophils # (auto) 0.01 K/uL (0-0.2); Basophils % (auto) 0.2 %; Eosinophils # (auto) 0.08 K/uL (0-0.5); Eosinophils % (auto) 1.3 %; Hematocrit (blood only) 40.1 % (42-52); Hemoglobin 13.8 g/dL (14.0-18.0); Immature Granulocytes # (auto) 0.01 K/uL (0.00-0.02); Immature Granulocytes % (auto) 0.2 %; Lymphocytes # (auto) 1.07 K/uL (1.2-3.4); Lymphocytes % (auto) 17.2 %; Mean Corpuscular Hemoglobin 31.3 pg (25-34); Mean Corpuscular Hgb Conc 34.4 g/dL (32-36); Mean Corpuscular Volume 90.9 fL (80-100); Mean Platelet Volume 9.5 fL (7.4-10.4); Monocytes # (auto) 0.74 K/uL (0.11-0.59); Monocytes % (auto) 11.9 %; Neutrophils # (auto) 4.31 K/uL (1.4-6.5); Neutrophils % (auto) 69.2 %; Platelet Count 235 K/uL (130-400); RDW Coefficient of Variation 13.3 % (11.5-14.5); RDW Standard Deviation 44.3 fL (36.4-46.3); Red Blood Count 4.41 M/uL (4.7-6.1); White Blood Count 6.22 K/uL (4.8-10.8)
[2021-03-29 08:02] LABS: Alanine Aminotransferase 25 U/L (12-78); Albumin Level 3.6 gm/dl (3.4-5.0); Aspartate Aminotransferase 19 U/L (15-37); BUN Creatinine Ratio 15.1 (10-20); Blood Urea Nitrogen 18 mg/dl (7-18); Calcium 8.9 mg/dl (8.5-10.1); Carbon Dioxide 25 mmol/L (21-32); Chloride 107 mmol/L (98-107); Cholesterol 121 mg/dl (0-200); Est GFR (African American) 70.7 ml/min; Glucose 92 mg/dl (70-99); Potassium 3.5 mmol/L (3.5-5.1); Sodium 139 mmol/L (136-145); Triglycerides 79 mg/dl (0-150); VLDL Cholesterol 16 mg/dl
[2021-03-29 08:09] LABS: Albumin Globulin Ratio 1.1 (0.9-2); Alkaline Phosphatase 63 U/L (45-117); Bilirubin,Total 1.6 mg/dl (0.2-1); Chol HDL Ratio 3; Globulin 3.2 gm/dl (2.5-4.0); HDL Cholesterol 40 mg/dl; LDL Cholesterol Calculated 65 mg/dl; Total Protein 6.8 gm/dl (6.4-8.2); Troponin I < 0.015 ng/ml (0-0.045)
[2021-03-29] MEDS ORDERED: lisinopril 10 MG TAB PO SCH (09:00)
[2021-03-29] MEDS ORDERED: ASPIRIN 81 MG ECTAB PO SCH (09:00)
[2021-03-29] MEDS ORDERED: LISINOPRIL/HCTZ 20/25MG 1 TAB PO SCH (09:00)
[2021-03-29] MEDS ORDERED: carvediloL 6.25 MG TAB PO SCH (09:00)
[2021-03-29] MEDS ORDERED: amLODIPine BESYLATE 5 MG TAB PO SCH (09:00)
[2021-03-29] MEDS ORDERED: ATORVASTATIN 40 MG TAB PO SCH (09:00)
[2021-03-29] MEDS ORDERED: PANTOprazole 40 MG TAB PO SCH (09:00)
--- NOTE | 2021-03-29 17:45 | XCELERA ---
[id number]
--- NOTE | 2021-03-29 18:17 | Discharge Summary ---
Date of Service March 29, 2021 Admission HPI Per Admitting Provider The patient is a 66-year-old male with a past medical history including BPH, hematuria, obesity, GERD, dyslipidemia, hematuria, hypertension, paresthesias and prediabetes. He was out in the yard working with his today on a relatively hot day, and she noted that he had his hand over left side of his chest, looked pale, and was short of breath and at that time he reports he was lightheaded and dizzy and had chest discomfort. He also notes that he can feel his heart pounding in the chest for a few minutes, which then seemed to settle down after he went back inside. When he went back inside to check his blood pressure and appeared to be higher than usual with systolic around 150. He then went to an acute care facility where his systolic blood pressure was up to 160, and they referred him to the ED for assessment. The patient reports that he had similar episodes in the past, though that was very minor and did not trigger any concerns. He and his note that he may not have kept up with his fluid i ntake as much as she should have today also. Principal Diagnosis Chest pain-noncardiac, uncontrolled hypertension Discharge Exam Constitutional WD/WN, vitals as above Eyes PERRL, conjunctivae normal, anicteric sclerae ENMT external ear and nose normal, oropharynx normal Neck trachea midline, no thyromegaly Respiratory normal respiratory effort, lungs clear to auscultation Cardiovascular RRR, no murmur, no edema Chest (Breasts) Chest: normal inspection of chest Gastrointestinal (Abdomen) normal bowel sounds, soft, nontender, no hepatosplenomegaly Musculoskeletal Extremities: extremities normal to inspection; no cyanosis and no clubbing Skin no rashes, warm and dry Neurologic moves all extremities and awake; no focal motor deficits Psychiatric A+Ox3, euthymic affect Lymphatic no lymphedema Discharge Data Allergies Allergy/AdvReac Type Severity Reaction Status Date / Time No Known Allergies Allergy Verified 04/01/21 18:03 Consultations 03/29/21 01:03 ED Decision to Admit Stat Procedures Performed Echocardiogram-mild LVH, hyperdynamic EF greater than 70% Hospital Course (1) Chest discomfort: Chest discomfort/uncontrolled hypertension- Serial troponin negative, ECG is without ischemic changes, echocardiogram without wall motion abnormalities and with preserved EF Continue amlodipine 5 mg daily, lisinopril 10 mg daily and lisinopril/HCTZ 20/25 daily. Will add on carvedilol and increase to 12.5 mg p.o. twice daily on discharge Check blood pressures at home and follow-up closely with PCP Please arrange for stress echocardiogram as an outpatient Discussed improving diet by watching salt intake (2) Hypertension: See above (3) Dyslipidemia: Continue atorvastatin 40 mg daily Fasting lipids are acceptable (4) Prediabetes: Glucose 93 upon admission. Check hemoglobin [id number] at the time of discharge (5) Acid reflux disease: Continue omeprazole/pantoprazole (6) BPH (benign prostatic hyperplasia): On no specific treatment at this time and no complaints Disposition-stable for discharge to home as he remained chest pain-free and blood pressure was with improved control Total Time Total Time Spent Total Time Spent (In Minutes): 35 minutes Discharge Plan Discharge Items Patient Disposition: Home - Self-Care Reason For Visit: CHEST PAIN,UNCONTROLLED BP Discharge Diagnosis: Chest pain, Hypertension Condition on Discharge: Good Activity: Resume your previous activity Non-emergency contact: Primary Care Provider Call non-emergency contact if: you have any medication questions and your symptoms worsen Follow-up/Referrals: Hiro Haskins, DO [Primary Care Provider] - (Please call to schedule a follow up within 1-2 weeks.) Diet: Heart Healthy and Low Sodium (2gm) Addtl Attending Provider Instructions: You were admitted for chest pains and elevated blood pressure. Your workup for a heart attack was normal and you were started on a new blood pressure medication called carvedilol 12.5mg twice a day to be taken in addition to the other medications. Please continue to check your blood pressures at home and buy a larger cuff as we discussed. Follow up with your PCP within 1 week. Pending Studies at Discharge: No Stand-Alone Forms: My [facility] Medications and DC Order Prescriptions: New carvedilol 12.5 mg Tablet 12.5 mg PO BID Qty: 60 RF: 0 Continued Prilosec OTC 20 mg tablet,delayed release (DR/EC) 20 mg PO DAILY RF: 0 lisinopril-hydrochlorothiazide 20-25 mg tablet 1 tab PO DAILY Qty: 90 RF: 3 lisinopril 10 mg tablet 10 mg PO DAILY Qty: 90 RF: 3 calcium carbonate [Tums E-X] 300 mg (750 mg) Tablet,Chewable 300 mg PO DIRECTED PRN (Reason: HEARTBURN/INDIGESTION) RF: 0 atorvastatin 40 mg tablet 40 mg PO DAILY RF: 0 No Action amlodipine 10 mg tablet 10 mg PO DAILY Qty: 30 RF: 2 Discharge Orders: Discharge Order (Routine); Ordered 03/29/21 Ordered By: Mayela Velez Admission Data Admit Date/Time: 03/29/21 01:45 Attending Provider: Mayela Velez Admit Provider: Nilesh Pa Primary Care Provider: Hiro Haskins Other Interventions: Discharge Summary Assessment (RN) Last Done: 03/29/21 17:50 Coding Level of Care Code 07148 OBS Care - Discharge Diagnoses Chest discomfort R07.89 Hypertension I10 Hypertension type: primary hypertension Dyslipidemia E78.5 Prediabetes R73.03 Acid reflux disease K21.9 BPH (benign prostatic hyperplasia) N40.0
[2021-03-29] MEDS ORDERED: carvediloL 12.5 MG TAB PO SCH (21:00)
--- NOTE | 2021-03-30 06:11 | Electrocardiogram Report ---
Test Reason : Blood Pressure : / mmHG Vent. Rate : 091 BPM Atrial Rate : 091 BPM P-R Int : 160 ms QRS Dur : 092 ms QT Int : 360 ms P-R-T Axes : 048 062 015 degrees QTc Int : 442 ms Normal sinus rhythm Normal ECG No previous ECGs available Confirmed by Rick Hooper ([id number]) on 03/30/2021 6:11:55 AM Referred By: REFERRED SELF Confirmed By:Rick Hooper
[2021-03-30 07:24] LABS: Estimated Average Glucose 120 mg/dl; Hemoglobin A1C 5.8 % (4.5-5.6)
--- NOTE | 2021-03-30 17:07 | Electrocardiogram Report ---
Test Reason : Blood Pressure : / mmHG Vent. Rate : 087 BPM Atrial Rate : 087 BPM P-R Int : 192 ms QRS Dur : 094 ms QT Int : 366 ms P-R-T Axes : 055 068 028 degrees QTc Int : 440 ms Normal sinus rhythm Normal ECG When compared with ECG of 28-MAR-2021 23:13, No significant change was found Confirmed by Rick Hooper ([id number]) on 03/30/2021 5:07:00 PM Referred By: REFERRED SELF Confirmed By:Rick Hooper
== END 2021-03-29 18:33 | disposition home or self-care (01) ==
LOC: ED 22:48 → 2S 22:48 → SUATTDRO 03-29 01:45 → 2S 03-29 03:18
DX: N40.0 Benign prostatic hyperplasia without lower urinary tract symptoms; K21.9 Gastro-esophageal reflux disease without esophagitis; R07.89 Other chest pain; E66.9 Obesity, unspecified; R06.09 Other forms of dyspnea; Z79.899 Other long term (current) drug therapy; I10 Essential (primary) hypertension; Z68.32 Body mass index [BMI] 32.0-32.9, adult; E78.5 Hyperlipidemia, unspecified; R73.03 Prediabetes

== ENCOUNTER 2021-05-01 10:35 | Observation (INO) ==
[2021-05-01 11:44] LABS: Basophils # (auto) 0.01 K/uL (0-0.2); Basophils % (auto) 0.1 %; Eosinophils # (auto) 0.05 K/uL (0-0.5); Eosinophils % (auto) 0.7 %; Hematocrit (blood only) 39.8 % (42-52); Immature Granulocytes # (auto) 0.01 K/uL (0.00-0.02); Immature Granulocytes % (auto) 0.1 %; Lymphocytes # (auto) 0.99 K/uL (1.2-3.4); Lymphocytes % (auto) 14.4 %; Mean Corpuscular Hemoglobin 31.8 pg (25-34); Mean Corpuscular Hgb Conc 35.2 g/dL (32-36); Mean Corpuscular Volume 90.5 fL (80-100); Mean Platelet Volume 9.8 fL (7.4-10.4); Monocytes % (auto) 10.2 %; Neutrophils # (auto) 5.13 K/uL (1.4-6.5); Neutrophils % (auto) 74.5 %; Platelet Count 246 K/uL (130-400); RDW Coefficient of Variation 13.4 % (11.5-14.5); RDW Standard Deviation 44.2 fL (36.4-46.3); White Blood Count 6.89 K/uL (4.8-10.8)
--- NOTE | 2021-05-01 11:49 | History & Physical Report ---
Date of Service May 01, 2021 Assessment & Plan (1) Abnormal barium swallow: Plan: patient with dysphagia and regurgitation since earlier this week. abnormal upper GI study yesterday with possible food impaction in the distal esophagus. to the endo lab with Dr Jackson for EGD to r/o food impaction, etc. h/o Schatzki's ring w/ dilatation - this will be ruled out as well. (2) Food impaction of esophagus: Plan: suspected [facility] has been consulted to endo suite today for diagnostic and/or therapeutic EGD by Dr Jackson NPO, IV PPI, IVF, IV tylenol for discomfort (3) Dysphagia: Plan: as above (4) BPH (benign prostatic hyperplasia): Plan: no issues at this time (5) Acid reflux disease: Plan: IV PPI bid as per GI (6) Dyslipidemia: Plan: statin (7) Hypertension: Plan: HOLD QIANA and HCTZ due to acute kidney injury continue coreg continue amlodipine (8) Prediabetes: Plan: a1c 5.8% earlier in March diet control at this time (9) TRIP (acute kidney injury): Plan: suspect 2nd to poor oral intake / prerenal - due to #3. Hydrate with isotonic fluids. repeat BMP in am. HOLD HCTZ HOLD QIANA Plan: additional plan of care will be dictated by EGD findings updated at bedside place on observation status History of Present Illness Chief Complaint: regurgitation/difficulty swallowing Primary Care Provider: DO James Martinez 66yo male with h/o HTN - recent hospital stay in early March 2021 for anxiety/chest discomfort/HTN - presents from home with regurgitation of most PO intake since Tuesday night. Prior to Tuesday had had no swallowing difficulty and had been tolerating his meals. Tuesday pm he ate hamburgers for dinner and "something just wasn't right." Since Tuesday pm he has been regurgitating any food he tries to take in. He initially had trouble with fluids for about 24 hours into Tuesday pm, then significantly reduced his fluid intake and started taking sips of liquids which fortunately did pass. He denies odynophagia or abdominal pain. No BRBPR or melena. No chest pain. Yesterday he underwent an upper GI series which appeared to show a distal eso phagus food impaction. He has prior h/o Schatzki's ring many years ago requiring dilatation by Dr Todd Villegas. Fully COVID vaccinated. COVID testing yesterday was negative. Allergies Allergy/AdvReac Type Severity Reaction Status Date / Time No Known Allergies Allergy Verified 05/01/21 12:24 Home Medications Medication Instructions Recorded Confirmed Type atorvastatin 40 mg tablet 40 mg PO QAM 03/29/21 05/01/21 History carvedilol 12.5 mg tablet 12.5 mg PO BID #60 tab 04/30/21 05/01/21 Rx amlodipine 10 mg tablet 10 mg PO QAM 05/01/21 05/01/21 History lisinopril 10 mg tablet 10 mg PO QAM 05/01/21 05/01/21 History lisinopril 20 1 tab PO QAM 05/01/21 05/01/21 History mg-hydrochlorothiazide 25 mg tablet (Zestoretic) lorazepam 0.5 mg tablet (Ativan) 0.5 mg PO DAILY PRN 05/01/21 05/01/21 History Past Med/Surg History Medical History Acid reflux disease Allergic rhinitis Dyslipidemia [email or web address] Dysphagia Hematuria +1 noted on UA 2016 and 2017. No urology notes in Allscripts. History of esophageal dilatation x2 with Dr Villegas. Hypertension Obesity (BMI 30-39.9) Prediabetes Surgical History H/O wisdom tooth extraction History of colonoscopy (08/13/15) Adenomatous polyp x 1. History of esophagogastroduodenoscopy (EGD) Family History Father Hypertension Stroke Mother Breast cancer Denies family history of Ovarian cancer Prostate cancer Diabetes Myocardial infarction Lung cancer Colorectal cancer Social History (Updated 05/01/21 @ 12:47 by Terry Lee) Smoking Status: Never smoker Second Hand Exposure: No; Hx Alcohol Use: No Hx Substance Use: No Preferred Language: Persian Communication Ability: Effective Visual Impairment: No Limitations Hearing Ability: Normal Salt Operator Required: No Beliefs That Will Affect Care: None marital status: Current Living Situation: Spouse and Family current occupational status: employed 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 How many Children do You have: 2 Feels Safe at Home: Yes Childhood Exposure to Second-Hand Smoke: Yes caffeine: Yes Dental Care, Regularly: Yes Physical Activity Frequency: 1-2 Times per Week Seatbelt Use: always Sunscreen Use: No Assistive Devices: Glasses Review of Systems Constitutional: no fever, no chills, no fatigue, no weakness and no weight loss Eyes: no worsening vision Ear, Nose, Mouth, Throat: as per Subjective / HPI and + dysphagia; no ear pain and no sore throat Respiratory: no cough, no dyspnea and no dyspnea on exertion Cardiovascular: no chest pain Gastrointestinal: + vomiting; no abdominal pain, no nausea, no hematemesis and no blood in stools Genitourinary: no dysuria Musculoskeletal: no joint pain Integumentary: no rash Neurologic: no localized weakness Psychiatric: + anxiety Endocrine: pre-diabetes only Hematologic / Lymphatic: no easy bleeding Physical Exam Constitutional: well developed and well nourished; no acute distress and no altered mental status (he is anxious however) Eyes: PERRL ENMT: Ears: no TM abnormality Mouth: + dry oral mucous membranes Neck: trachea midline, no thyromegaly Respiratory: normal respiratory effort, lungs clear to auscultation Cardiovascular: RRR, no murmur, no edema Heart Sounds: normal S1 and normal S2 Vessels: posterior tibial pulses present and dorsalis pedis pulses present; no JVD Gastrointestinal (Abdomen): normal bowel sounds, soft, nontender, no hepatosplenomegaly Musculoskeletal: no cyanosis or clubbing, extremities motor strength 5/5 Skin: no rashes, warm and dry Neurologic: moves all extremities; no focal motor deficits Psychiatric: Orientation: alert and oriented x 3 Affect: + anxious affect Lymphatic: no cervical lymphadenopathy Results & Data Results & Data ([facility]) Vital Signs (Past 12 Hours) Vital Signs Temp Pulse Resp BP Pulse Ox 05/01/21 10:54 36.6 C 71 20 125/71 98 Laboratory Results Laboratory Results - last 24 hr 05/01/21 05/01/21 11:25 11:25 WBC 6.89 RBC 4.40 L Hgb 14.0 Hct 39.8 L MCV 90.5 MCH 31.8 MCHC 35.2 RDW Std Deviation 44.2 RDW Coeff of Mayela 13.4 Plt Count 246 MPV 9.8 Immature Gran % (Auto) 0.1 Neut % (Auto) 74.5 Lymph % (Auto) 14.4 Brooks % (Auto) 10.2 Eos % (Auto) 0.7 Baso % (Auto) 0.1 Neut # (Auto) 5.13 Lymph # (Auto) 0.99 L Brooks # (Auto) 0.70 H Eos # (Auto) 0.05 Baso # (Auto) 0.01 Immature Gran # (Auto) 0.01 Sodium 137 Potassium 4.0 Chloride 104 Carbon Dioxide 27 Anion Gap 6.0 BUN 41 H Creatinine 1.75 H Est Cr Clr Drug Dosing 50.7 Est GFR ( Amer) 45.7 Est GFR (Non-Af Amer) 39.4 BUN/Creatinine Ratio 23.5 H Glucose 96 Calcium 9.6 Diagnostic Findings upper GI series - 04/30/21 - IMPRESSION: Irregular intraluminal filling defects within the distal esophagus results in esophageal distention with delayed emptying and partial obstruction. A food bolus is favored, however correlation with endoscopy is needed to exclude an obstructing mucosal lesion. Code Status & VTE Plan Code Status full code PG Care Time/CCT Total # of Minutes Spent Total Time Spent with Patient: Total time spent is greater than 50% in coordination of care (as documented) at patient's floor/unit and/or counseling patient: Coding Level of Care Code INT OBSERVATION CARE 70M LVL 3 Diagnoses Abnormal barium swallow R93.3 Dysphagia R13.10 Food impaction of esophagus T18.128A BPH (benign prostatic hyperplasia) N40.0 Acid reflux disease K21.9 Dyslipidemia E78.5 Hypertension I10 Hypertension type: primary hypertension Prediabetes R73.03 TRIP (acute kidney injury) N17.9 (1) Hypertension Hypertension type: primary hypertension Qualified Code(s): I10 - Essential (primary) hypertension
[2021-05-01 12:11] LABS: BUN Creatinine Ratio 23.5 (10-20); Calcium 9.6 mg/dl (8.5-10.1); Creatinine Clr Calc Pharmacy 50.7 ml/min; Est GFR (African American) 45.7 ml/min; Est GFR (Non-African American) 39.4 ml/min
[2021-05-01] MEDS ORDERED: D5W AND NSS 1,000 ML IV SCH (12:30)
--- NOTE | 2021-05-01 12:47 | Gastrointestinal Consultation ---
Date of Consultation May 01, 2021 Assessment & Plan (1) Abnormal barium swallow: (2) Dysphagia: -Keep NPO for EGD in OR today -Pantoprazole 40 mg IV BID -Further recommendations pending results of EGD Supervising Physician Co-Signing Physician Notes I personally evaluated the patient and agree with the findings as documented by Nkechi Robles, ALVARO Exam: abd: soft, nt, nd Proceed with EGD. History of Present Illness Reason for Consultation: Food bolus History of Present Illness Patient is a 66 yo male with PMH of HTN, HLD, & GERD who presents to the ED after having an abnormal outpatient barium swallow. He notes that he has a history of GERD for which he takes Omeprazole 20 mg daily. He notes a history of a Schatzki ring many years ago that required dilatation. He reports that intermittently lately, he has felt resistance with swallowing certain foods, however Tuesday he notes he had a hamburger and felt that it would not pass through the esophagus. He reports since that time he has vomited each time he has tried to consume solid food. He made an appointment with his PCP for further evaluation. He had a barium swallow yesterday that indicated Irregular intraluminal filling defects within the distal esophagus results in esophageal distention with delayed emptying and partial obstruction. A food bolus is favored, however correlation with endoscopy is needed to exclude an obstructing mucosal lesion. He was instructed by our office to present to the emergency room for further evaluation. He had sips of water this AM, but no solid food for >24 hours. Denies hematemesis or melena. No pertinent family history. Allergies Allergy/AdvReac Type Severity Reaction Status Date / Time No Known Allergies Allergy Verified 05/01/21 12:24 Home Medications Medication Instructions Recorded Confirmed Type atorvastatin 40 mg tablet 40 mg PO QAM 03/29/21 05/01/21 History calcium carbonate 300 mg (750 mg) 300 mg PO DIRECTED PRN 03/29/21 05/01/21 History chewable tablet (Tums E-X) lorazepam 0.5 mg tablet 0.5 mg PO DAILY PRN #3 tab 04/28/21 05/01/21 Rx carvedilol 12.5 mg tablet 12.5 mg PO BID #60 tab 04/30/21 05/01/21 Rx amlodipine 10 mg tablet 10 mg PO QAM 05/01/21 05/01/21 History lisinopril 10 mg tablet 10 mg PO QAM 05/01/21 05/01/21 History lisinopril 20 1 tab PO QAM 05/01/21 05/01/21 History mg-hydrochlorothiazide 25 mg tablet Patient History Medical History Acid reflux disease Allergic rhinitis Dyslipidemia [email or web address] Dysphagia Hematuria +1 noted on UA 2016 and 2018. No urology notes in Allscripts. History of esophageal dilatation x2 with Dr Villegas. Hypertension Obesity (BMI 30-39.9) Prediabetes Surgical History H/O wisdom tooth extraction History of colonoscopy (08/13/15) Adenomatous polyp x 1. 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 Feels Safe at Home: Yes Childhood Exposure to Second-Hand Smoke: Yes caffeine: Yes Dental Care, Regularly: Yes Physical Activity Frequency: 1-2 Times per Week Seatbelt Use: always Sunscreen Use: No Assistive Devices: Glasses Review of Systems Constitutional: no fever and no chills Respiratory: no cough and no dyspnea Cardiovascular: no chest pain Gastrointestinal: + bloating, + vomiting and + dysphagia; no heartburn, no nausea and no melena Physical Exam Constitutional: WD/WN, vitals as above Respiratory: normal respiratory effort, lungs clear to auscultation normal respiratory effort Gastrointestinal (Abdomen): normal bowel sounds, soft, nontender, no hepatosplenomegaly Musculoskeletal: Head/Neck/Chest: normocephalic Psychiatric: Orientation: alert and oriented x 3 Results & Data ([facility]) Vital Signs (Past 12 Hours) Vital Signs Temp Pulse Resp BP Pulse Ox 05/01/21 10:54 36.6 C 71 20 125/71 98 PG Care Time/CCT Total # of Minutes Spent Total Time Spent with Patient: Total time spent is greater than 50% in coordination of care (as documented) at patient's floor/unit and/or counseling patient: Coding Level of Care Code 78255 Initial Inpt Care Lvl 3 Diagnoses Abnormal barium swallow R93.3 Dysphagia R13.10
[2021-05-01] MEDS ORDERED: PANTOprazole 40 MG in SYRINGE 0 ML IV ONE (13:15)
[2021-05-01] MEDS: PANTOprazole 40 MG in SYRINGE 0 ML IV SCH ×2 (13:38→20:29)
[2021-05-01] MEDS: D5W AND NSS 1,000 ML IV SCH ×2 (14:07→18:43)
[2021-05-01] MEDS ORDERED: fentaNYL citrate 100 MCG/2 ML VIAL IV PRN (14:09)
[2021-05-01] MEDS ORDERED: ATROPINE SULFATE 0.1 MG/ML 10ML SYR IV PRN (14:09)
[2021-05-01] MEDS ORDERED: ONDANSETRON INJ 2 MG/ML 2 ML VIAL IV PRN (14:09)
[2021-05-01] MEDS ORDERED: ePHEDrine sulfate 50 MG/ML AMP IV PRN (14:09)
--- NOTE | 2021-05-01 14:09 | Anesthesiology Consultation ---
Date of Service May 01, 2021 Assessment & Plan ASA ASA2E Proposed Anesthesia Anesthesia Type: General Risk / Benefits Reviewed With: PT / POA / Parent / Guardian, Accepts Plan and Informed Consent Obtained History Surgery Operation Date: 05/01/21 08:20 Proposed Procedures p Esophagogastroduodenoscopy - Marty Jackson MD Height/Weight Height: 6 ft Weight: 102.2 kg Allergies Allergy/AdvReac Type Severity Reaction Status Date / Time No Known Allergies Allergy Verified 05/01/21 12:24 Medications Home Medications Medication Instructions Recorded Confirmed Last Taken atorvastatin 40 mg tablet 40 mg PO QAM 03/29/21 05/01/21 05/01/21 carvedilol 12.5 mg tablet 12.5 mg PO BID #60 tab 04/30/21 05/01/21 05/01/21 amlodipine 10 mg tablet 10 mg PO QAM 05/01/21 05/01/21 05/01/21 lisinopril 10 mg tablet 10 mg PO QAM 05/01/21 05/01/21 05/01/21 lisinopril 20 1 tab PO QAM 05/01/21 05/01/21 04/30/21 mg-hydrochlorothiazide 25 mg tablet (Zestoretic) lorazepam 0.5 mg tablet (Ativan) 0.5 mg PO DAILY PRN 05/01/21 05/01/21 Unknown Active Medications Generic Name Dose Route Start Last Admin Trade Name Freq PRN Reason Stop Dose Admin Dextrose/Sodium Chloride 1,000 mls @ 80 mls/hr 05/01/21 12:45 05/01/21 14:07 D5w And Nss IV 05/31/21 12:44 80 mls/hr .[id number] SAIMA Administration Pantoprazole Sodium 40 mg/ 10 mls @ 5 mls/min 05/01/21 12:45 05/01/21 13:38 Syringe IV 05/31/21 12:44 5 mls/min BID@0900,2100 SAIMA Administration NPO Date Last Intake of Fluids: 05/01/21 Time Last Intake of Fluids: 10:00 Last Intake of Fluids Comment: med with sip of water Date Last Intake of Solids: 04/27/21 Past Medical History Medical History Acid reflux disease Allergic rhinitis Dyslipidemia [email or web address] Dysphagia Hematuria +1 noted on UA 2016 and 2018. No urology notes in Allscripts. History of esophageal dilatation x2 with Dr Villegas. Hypertension Obesity (BMI 30-39.9) Prediabetes Exercise / Class Metabolic Activity II 4-5 Yardwork/Stairs/Walk up hill Past Family History Family History Father Hypertension Stroke Mother Breast cancer Denies family history of Ovarian cancer Prostate cancer Diabetes Myocardial infarction Lung cancer Colorectal cancer Past Surgical History Surgical History H/O wisdom tooth extraction History of colonoscopy (08/13/15) Adenomatous polyp x 1. History of esophagogastroduodenoscopy (EGD) Past Anesthesia History No Hx of Anesthesia Complications and No Family Hx of Anesthesia Complications History of PONV No Hx of PONV and No Hx of Motion Sickness Social History Smoking Status: Never smoker Hx Alcohol Use: No Hx Substance Use: No substance use type: does not use Review of Systems denies fever/cough/ colds/ chest pain/ SOB/ GALINDO denies GALINDO Physical Exam Vital Signs Last Vital Signs Temp 36.7 C 05/01/21 13:48 Pulse 84 05/01/21 13:48 Resp 18 05/01/21 13:48 BP 152/65 H 05/01/21 13:48 Pulse Ox 99 05/01/21 13:48 ENMT Mouth: no TMJ abnormality and no dentition abnormality Thyromental Distance: > or= 3.5 Finger Breadths Mallampati Class: II Neck neck extension not limited Respiratory normal respiratory effort; no respiratory distress Auscultation: lungs clear to auscultation bilaterally Cardiovascular Rate/Rhythm: regular rate and regular rhythm Neurologic moves all extremities Psychiatric Orientation: alert and oriented x 3 Testing Laboratory Results 05/01/21 11:25 05/01/21 11:25
--- NOTE | 2021-05-01 14:39 | GI REPORT ---
Patient Name: Prince Lloyd Procedure Date: 05/01/2021 2:11 PM Date of : 1955 Admit Type: Emergency Department Age: 66 Gender: Male Attending MD: Marty Jackson MD Procedure: Upper GI endoscopy Providers: Marty Jackson MD Referring MD: Terry Lee Indications: Dysphagia, Foreign body in the esophagus, Abnormal UGI series Medicines: Monitored Anesthesia Care Complications: No immediate complications. Estimated blood loss: None. Estimated Blood Loss: Estimated blood loss: none. Procedure: Pre-Anesthesia Assessment: - Prior Anticoagulants: The patient has taken no previous anticoagulant or antiplatelet agents. - ASA Grade Assessment: III - A patient with severe systemic disease. After obtaining informed consent, the endoscope was passed under direct vision. Throughout the procedure, the patient's blood pressure, pulse, and oxygen saturations were monitored continuously. The Endoscope was introduced through the mouth, and advanced to the second part of duodenum. The upper GI endoscopy was accomplished without difficulty. The patient tolerated the procedure well. Findings: The examined esophagus was mildly tortuous. No evidence of food or any foreign body. A guidewire was placed and the scope was withdrawn. Dilation was performed with a Savary dilator with no resistance at 48 Fr. The dilation site was examined following endoscope reinsertion and showed no change. Estimated blood loss: none. A single 11 mm sessile polyp with no bleeding and no stigmata of recent bleeding was found in the cardia. The polyp was removed with a hot snare. Resection and retrieval were complete using a [place]cia net. Estimated blood loss: none. The duodenal bulb and second portion of the duodenum were normal. Estimated blood loss: none. Impression: - Tortuous esophagus. - A single gastric polyp. Resected and retrieved. - Normal duodenal bulb and second portion of the duodenum. Recommendation: - Return patient to hospital [facility] for ongoing care. - Advance diet as tolerated today. If tolerates diet and asymptomatic can be discharged this evening. - Await pathology results. Marty Jackson MD 05/01/2021 2:39:20 PM This report has been signed electronically. Note Initiated On: 05/01/2021 2:11 PM Number of Addenda: 0 I attest to the content of the Intraoperative Record and orders documented therein, exceptions below {[id number]}
--- NOTE | 2021-05-01 15:04 | Procedure Note ---
Procedure Note Date of Service May 01, 2021 Note GI brief procedure note EGD findings: tortuous esophagus, dilated with savary dilator to 48Fr. No evidence of food or foreign body nor other obstruction. large gastric polyp removed. Recs: diet as tolerated f/u path results if tolerates diet can be discharged this evening Marty Jackson MD Gastroenterology Coding
--- NOTE | 2021-05-01 15:46 | Anesthesiology Progress Note ---
Date of Service May 01, 2021 Anesthesia Post Procedure Vital Signs Vital Signs: Temp Pulse Pulse Pulse Resp BP BP 05/01/21 15:25 36.4 C L 85 16 05/01/21 15:15 89 16 05/01/21 15:05 92 H 16 05/01/21 14:55 92 H 16 05/01/21 14:46 36.8 C 91 H 16 05/01/21 13:48 36.7 C 84 18 152/65 H 05/01/21 10:54 36.6 C 71 20 125/71 BP Pulse Ox 05/01/21 15:25 99/61 L 99 05/01/21 15:15 97/60 L 98 05/01/21 15:05 89/55 L 98 05/01/21 14:55 111/56 L 98 05/01/21 14:46 106/66 95 05/01/21 13:48 99 05/01/21 10:54 98 Transfer of Care Handoff Completed per policy Notes Mental Status: alert / awake / arousable and participated in evaluation Patient Amnestic to Procedure: Yes Nausea / Vomiting: adequately controlled Pain: adequately controlled Airway Patency, RR, SpO2: stable & adequate BP & HR: stable & adequate Hydration State: stable & adequate Anesthetic Complications: no major complications apparent and Pt Satisfied with anesthetic care
[2021-05-01] MEDS ORDERED: LORazepam 0.5 MG TAB PO PRN (18:43)
[2021-05-01] MEDS ORDERED: PANTOprazole 40 MG in SYRINGE 0 ML IV SCH (21:00)
[2021-05-01] MEDS: carvediloL 12.5 MG TAB PO SCH (21:31)
[2021-05-02] MEDS: D5W AND NSS 1,000 ML IV SCH (06:04)
[2021-05-02 06:16] LABS: BUN Creatinine Ratio 21.9 (10-20); Calcium 8.5 mg/dl (8.5-10.1); Creatinine Clr Calc Pharmacy 70.9 ml/min; Est GFR (African American) 68.6 ml/min; Est GFR (Non-African American) 59.2 ml/min; Magnesium 2.3 mg/dl (1.8-2.4); Potassium 4.3 mmol/L (3.5-5.1)
[2021-05-02] MEDS: carvediloL 12.5 MG TAB PO SCH (08:21)
[2021-05-02] MEDS: PANTOprazole 40 MG in SYRINGE 0 ML IV SCH (08:23)
[2021-05-02] MEDS ORDERED: amLODIPine BESYLATE 5 MG TAB PO SCH (09:00)
[2021-05-02] MEDS ORDERED: ATORVASTATIN 40 MG TAB PO SCH (09:00)
--- NOTE | 2021-05-02 10:07 | Discharge Summary ---
Date of Service May 02, 2021 Admission HPI Per Admitting Provider James 66yo male with h/o HTN - recent hospital stay in early March 2021 for anxiety/chest discomfort/HTN - presents from home with regurgitation of most PO intake since Tuesday night. Prior to Tuesday had had no swallowing difficulty and had been tolerating his meals. Tuesday pm he ate hamburgers for dinner and "something just wasn't right." Since Tuesday pm he has been regurgitating any food he tries to take in. He initially had trouble with fluids for about 24 hours into Tuesday pm, then significantly reduced his fluid intake and started taking sips of liquids which fortunately did pass. He denies odynophagia or abdominal pain. No BRBPR or melena. No chest pain. Yesterday he underwent an upper GI series which appeared to show a distal esophagus food impaction. He has prior h/o Schatzki's ring many years ago requiring dilatation by Dr Todd Villegas. Fully COVID vaccinated. COVID testing yesterday was negative. Admission Exam Per Admitting Provider Constitutional: well developed and well nourished; no acute distress and no altered mental status (he is anxious however) Eyes: PERRL ENMT: Ears: no TM abnormality Mouth: + dry oral mucous membranes Neck: trachea midline, no thyromegaly Respiratory: normal respiratory effort, lungs clear to auscultation Cardiovascular: RRR, no murmur, no edema Heart Sounds: normal S1 and normal S2 Vessels: posterior tibial pulses present and dorsalis pedis pulses present; no JVD Gastrointestinal (Abdomen): normal bowel sounds, soft, nontender, no hepatosplenomegaly Musculoskeletal: no cyanosis or clubbing, extremities motor strength 5/5 Skin: no rashes, warm and dry Neurologic: moves all extremities; no focal motor deficits Psychiatric: Orientation: alert and oriented x 3 Affect: + anxious affect Lymphatic: no cervical lymphadenopathy Principal Diagnosis Dysphagia Discharge Exam Temp Pulse Resp BP Pulse Ox 36.6 C 56 L 17 130/76 98 05/02/21 07:48 05/02/21 07:48 05/02/21 07:48 05/02/21 07:48 05/02/21 07:48 Patient is afebrile. Vital signs stable. Constitutional + obese; no acute distress ENMT Ears: no hearing impairment Neck normal visual inspection Respiratory normal respiratory effort, lungs clear to auscultation Cardiovascular RRR, no murmur, no edema Gastrointestinal (Abdomen) Inspection/Auscultation: normal bowel sounds Percussion/Palpation: abdomen soft; abdomen nontender Musculoskeletal Head/Neck/Chest: normocephalic and head atraumatic Skin no rashes, warm and dry Psychiatric A+Ox3, euthymic affect Discharge Data Allergies Allergy/AdvReac Type Severity Reaction Status Date / Time No Known Allergies Allergy Verified 05/06/21 17:48 Consultations 05/01/21 11:40 Consult Gastroenterology Stat 05/01/21 13:00 ED Decision to Admit Stat Procedures Performed Operation Date: 05/01/21 08:20 Actual Procedures p Upper gastrointestinal endoscopy with esophageal dilation. - Marty Jackson MD Hospital Course (1) Abnormal barium swallow: -patient with dysphagia and regurgitation since earlier this week. -abnormal upper GI study yesterday with possible food impaction in the distal esophagus.--> EGD performed yesterday by Dr. Jackson. Tortuous esophagus noted and dilated. No evidence for food impaction or foreign body. Large gastric polyp was removed. -h/o Schatzki's ring w/ dilatation (2) Food impaction of esophagus: - Suspected on admission and barium swallow. R/o during EGD. (3) Dysphagia: as above (4) BPH (benign prostatic hyperplasia): - Stable. No current issues. (5) Acid reflux disease: - IV PPI bid as per GI (6) Dyslipidemia: - Continue atorvastatin (7) Hypertension: HOLD QIANA and HCTZ due to acute kidney injury--- Cr now improved to 1.25. Resume meds on discharge. - continue coreg - continue amlodipine (8) Prediabetes: - a1c 5.8% earlier in March - diet controlled at this time (9) TRIP (acute kidney injury): - suspect 2nd to poor oral intake / prerenal - due to #3. - Cr improved to baseline 1.25 today. - Resume HCTZ and QIANA. Plan for d/c home today. Patient is scheduled to follow-up with primary care on 05/06/21. Plan for outpatient f/u with Dr. Jackson in 1-2 weeks. Total Time Total Time Spent Total Time Spent (In Minutes): > 30 minutes Total Time Includes: Examination of the Patient, Discharge Planning, Medication Reconciliation and Communication With Other Providers Discharge Plan Discharge Items Patient Disposition: Home - Self-Care Reason For Visit: SUSPECTED FOOD IMPACTION Discharge Diagnosis: Dysphagia Activity: Resume your previous activity Driving/Machine Use: Resume 1 day after discharge Weightbearing: Full weightbearing Non-emergency contact: Primary Care Provider Call non-emergency contact if: you have any medication questions and your symptoms worsen Follow-up/Referrals: Marty Jackson MD [Physician] - Hiro Haskins, [Primary Care Provider] - 05/06/21 5:45 pm Diet: Regular Diet Texture: Easy to Chew Diet Comment: Fluids encouraged with bites. James Attending Provider Instructions: Follow-up with primary care on May 06, 2021 as scheduled. Follow-up with Dr. Jackson in 1-2 weeks. - Needs scheduled. Pending Studies at Discharge: Yes Studies:: Gastric Polyp biopsy pathology. Stand-Alone Forms: My [facility] Medications and DC Order Prescriptions: Continued carvedilol 12.5 mg tablet 12.5 mg PO BID Qty: 60 RF: 0 lorazepam [Ativan] 0.5 mg tablet 0.5 mg PO DAILY PRN (Reason: anxiety) RF: 0 atorvastatin 40 mg tablet 40 mg PO QAM RF: 0 amlodipine 10 mg tablet 10 mg PO QAM RF: 0 lisinopril 10 mg tablet 10 mg PO QAM RF: 0 lisinopril-hydrochlorothiazide [Zestoretic] 20-25 mg tablet 1 tab PO QAM RF: 0 Discharge Orders: Discharge Order (Routine); Ordered 05/02/21 Ordered By: Lucie Gooden/Other Patient Handouts: Understanding Dysphagia Admission Data Admit Date/Time: 05/01/21 12:42 Attending Provider: Tj Das Admit Provider: Terry Lee Primary Care Provider: Hiro Haskins Other Providers: Marty Jackson Other Interventions: Discharge Summary Assessment (RN) Last Done: 05/02/21 10:12 Supervising Physician Co-Signing Physician Notes Patient seen and examined on the day of discharge. I agree with the discharge summary by Lucie BUTLER. I have reviewed the chart including labs, im aging and plans for discharge. patient doing well ever since EGD, no issues with liquid diet last night and regular diet today EGD showed tortuous esophagus, has had issues with swallowing in the past will follow up with GI and PCP Coding Level of Care Code 30706 OBS Care - Discharge Medical Decision Making Moderate Complexity Diagnoses Abnormal barium swallow R93.3 Food impaction of esophagus T18.128A Dysphagia R13.10 BPH (benign prostatic hyperplasia) N40.0 Acid reflux disease K21.9 Dyslipidemia E78.5 Hypertension I10 Hypertension type: primary hypertension Prediabetes R73.03 TRIP (acute kidney injury) N17.9
--- NOTE | 2021-05-06 13:32 | Emergency Department Note ---
Impression & Plan Abnormal barium swallow, TRIP (acute kidney injury), Dysphagia ED Provider Note NAME: FRANSICO JESUS AGE: 66 SEX: M : 1955 ARRIVES VIA: Walk-In INFORMANT: Patient, , previous records ED PROVIDER(S): Jonathan Costa MD CHIEF COMPLAINT: abnormal braium swallow HPI: This 66-year-old male who presents emergency department after being sent in for abnormal barium swallow that was performed yesterday. The patient has a history of esophageal stretching done by [facility]. Patient and his report that he was eating a hamburger on Tuesday and since then really has not been able to swallow anything. He reports spitting out his own saliva. He reports nothing makes this better or worse. He has not been able to take anything to try and correct this problem. He had an outpatient barium swallow study yesterday which was found to be abnormal. The patient was then sent to the emergency department by gastroenterology. ROS: See above HPI for pertinent positives & negatives. A total of 10 systems reviewed and were otherwise negative. PAST MEDICAL HISTORY: See Below PAST SURGICAL HISTORY: See Below FAMILY HISTORY: See Below SOCIAL HISTORY: See Below HOME MEDICATIONS: See Below ALLERGIES: See Below VITALS: See Below PHYSICAL EXAMINATION: VITAL SIGNS - Vital signs and nursing notes were reviewed. GENERAL - 66-year-old male appearing stated age who is in no acute distress. Communicates well with provider and answers questions appropriately. SKIN - Without rashes. HEAD - NC/AT. EYES - PERRL with EOMI bilaterally. Sclera anicteric. Palpebral conjunctiva pink and moist with no injection noted. EARS - No deformities of external structures noted on gross examination bilaterally. NOSE - Midline and without cyanosis. No epistaxis or purulent drainage noted. Septum midline without deviation or septal hematoma noted. MOUTH/OROPHARYNX - Without perioral cyanosis. Buccal mucosa pink and moist and without leukoplakia. Tongue midline with equal elevation of palate bilaterally. No tonsillar hypertrophy, erythema, or exudates noted. NECK - Neck with FROM. Supple to palpation. LUNGS - Chest wall symmetric without accessory muscle use, intercostals retractions, or central cyanosis. Normal vesicular breath sounds CTA B/L. No wheezes, rales, or rhonchi appreciated. CARDIAC - RRR with S1/S2. No murmur, rubs, or gallops appreciated. ABDOMEN - Abdominal contour without pulsations or visible masses. BS normoactive all four quadrants. No tenderness, palpable masses, hepatosplenomegaly, or ascites noted. EXTREMITIES - No clubbing or peripheral cyanosis. No pretibial edema present. +3/5 radial, posterior tibial, and dorsalis pedis pulses palpated throughout. +5/5 strength noted in UE/LE bilaterally. NEUROLOGIC - Cranial nerves II through XII grossly intact. Sensory intact to light touch throughout. Patellar reflexes +2/4. PSYCH - A&Ox3 and cooperates fully with examiner. Pt is very pleasant and interacts well with examiner. MEDICAL DECISION MAKING: Patient was seen and evaluated as above in room B8. Review was performed of nursing notes and vital signs. I did review pertinent previous visits and patient history. After obtaining a thorough history and physical examination the above work up was performed. This 66-year-old male who presents emergency department complaining of abnormal barium swallow. I did discuss the case with gastroenterology who are requesting that the patient be admitted to the medicine service in the meanwhile they are going to take the patient to the GI lab. The patient does not have an elevation his white blood cell count has a normal hemoglobin his BUN is slightly bumped. An order was placed for continuous cardiac monitoring. The monitor shows a rate of 88 with Normal SInus rhythm. The patient was evaluated during a period of high volume and high acuity during the global COVID-19 pandemic, and that diagnosis was suspected/considered upon their initial presentation. Their evaluation, treatment and testing was consistent with current guidelines for patients who present with complaints or symptoms that may be related to COVID-19. Patient was seen while provider was wearing PPE. Triage Nursing notes reviewed. Prior medical records reviewed Vital Signs: reviewed and remarkable for no significant abnormalities Differential diagnosis: Appendicitis, testicular torsion, infections, diverticulitis, UTI, obstruction, mesenteric ischemia, aortic pathology, inflammatory bowel disease, renal colic, PUD, pancreatitis, biliary pathology, hernia, volvulus, constipation, as well as other pathologies. ER treatment provided: See below Consultation(s): Gastroenterology Internal medicine Past Med/Surg History Medical History Acid reflux disease Allergic rhinitis Dyslipidemia [email or web address] Dysphagia Hematuria +1 noted on UA 2017 and 2018. No urology notes in [employer]. History of esophageal dilatation x2 with Dr Villegas. Hypertension Obesity (BMI 30-39.9) Prediabetes Surgical History H/O wisdom tooth extraction History of colonoscopy (08/13/15) Adenomatous polyp x 1. History of esophagogastroduodenoscopy (EGD) Family History Father Hypertension Stroke Mother Breast cancer Denies family history of Ovarian cancer Prostate cancer Diabetes Myocardial infarction Lung cancer Colorectal cancer Social History (Updated 05/01/21 @ 12:47 by Terry Lee) Smoking Status: Never smoker Second Hand Exposure: No; Hx Alcohol Use: No Hx Substance Use: No Preferred Language: Chinese Communication Ability: Effective Visual Impairment: No Limitations Hearing Ability: Normal Agricultural Researcher Required: No Beliefs That Will Affect Care: None marital status: Current Living Situation: Spouse and Family current occupational status: employed current occupation: helper driver for [employer] How many Children do You have: 2 Feels Safe at Home: Yes Childhood Exposure to Second-Hand Smoke: Yes caffeine: Yes Dental Care, Regularly: Yes Physical Activity Frequency: 1-2 Times per Week Seatbelt Use: always Sunscreen Use: No Assistive Devices: Glasses Allergies Allergies Allergy/AdvReac Type Severity Reaction Status Date / Time No Known Allergies Allergy Verified 05/01/21 12:24 Home Meds Home Medications Medication Instructions Recorded Confirmed atorvastatin 40 mg tablet 40 mg PO QAM 03/29/21 05/04/21 amlodipine 10 mg tablet 10 mg PO QAM 05/01/21 05/04/21 lisinopril 10 mg tablet 10 mg PO QAM 05/01/21 05/04/21 lisinopril 20 1 tab PO QAM 05/01/21 05/04/21 mg-hydrochlorothiazide 25 mg tablet (Zestoretic) lorazepam 0.5 mg tablet (Ativan) 0.5 mg PO DAILY PRN 05/01/21 05/04/21 Previous Rx's Medication Instructions Recorded carvedilol 12.5 mg tablet 12.5 mg PO BID #60 tab 04/30/21 Results & Data (ED) Home Medications Current Medication List: was personally reviewed by me Laboratory Data Attestation: I reviewed the patient's lab results. Result diagrams: 05/01/21 11:25 05/02/21 05:28 Lab Results 05/01/21 05/01/21 Range/Units 11:25 11:25 WBC 6.89 (4.8-10.8) K/uL RBC 4.40 L (4.7-6.1) M/uL Hgb 14.0 (14.0-18.0) g/dL Hct 39.8 L (42-52) % MCV 90.5 (80-100) fL MCH 31.8 (25-34) pg MCHC 35.2 (32-36) g/dL RDW Std Deviation 44.2 (36.4-46.3) fL RDW Coeff of Mayela 13.4 (11.5-14.5) % Plt Count 246 (130-400) K/uL MPV 9.8 (7.4-10.4) fL Immature Gran % (Auto) 0.1 % Neut % (Auto) 74.5 % Lymph % (Auto) 14.4 % Tate % (Auto) 10.2 % Eos % (Auto) 0.7 % Baso % (Auto) 0.1 % Neut # (Auto) 5.13 (1.4-6.5) K/uL Lymph # (Auto) 0.99 L (1.2-3.4) K/uL Tate # (Auto) 0.70 H (0.11-0.59) K/uL Eos # (Auto) 0.05 (0-0.5) K/uL Baso # (Auto) 0.01 (0-0.2) K/uL Immature Gran # (Auto) 0.01 (0.00-0.02) K/uL Sodium 137 (136-145) mmol/L Potassium 4.0 (3.5-5.1) mmol/L Chloride 104 (98-107) mmol/L Carbon Dioxide 27 (21-32) mmol/L Anion Gap 6.0 (3-11) BUN 41 H (7-18) mg/dl Creatinine 1.75 H (0.6-1.4) mg/dl Est Cr Clr Drug Dosing 50.7 ml/min Est GFR ( Amer) 45.7 ml/min Est GFR (Non-Af Amer) 39.4 ml/min BUN/Creatinine Ratio 23.5 H (10-20) Glucose 96 (70-99) mg/dl Calcium 9.6 (8.5-10.1) mg/dl Administered Medications Discontinued Medications Amlodipine Besylate (Amlodipine Besylate 5 Mg Tab) 10 mg PO QAM [facility] Stop: 06/01/21 08:59 Last Admin: 05/02/21 08:21 Dose: 10 mg Documented by: [id number] Atorvastatin Calcium (Atorvastatin 40 Mg Tab) 40 mg PO QAM [facility] Stop: 06/01/21 08:59 Last Admin: 05/02/21 08:21 Dose: 40 mg Documented by: [id number] Carvedilol (Carvedilol 12.5 Mg Tab) 12.5 mg PO BID [facility] Stop: 05/31/21 20:59 Last Admin: 05/02/21 08:21 Dose: Not Given Documented by: [id number] Admin: 05/01/21 21:31 Dose: 12.5 mg Documented by: [id number] Dextrose/Sodium Chloride (D5w And Nss) 1,000 mls @ 80 mls/hr IV .[id number] [facility] Stop: 05/31/21 12:44 Last Infusion: 05/02/21 11:01 Dose: 0 mls/hr Documented by: [id number] Admin: 05/02/21 06:04 Dose: 80 mls/hr Documented by: [id number] Infusion: 05/02/21 06:04 Dose: 80 mls/hr Documented by: [id number] Admin: 05/01/21 18:43 Dose: 80 mls/hr Documented by: [id number] Infusion: 05/01/21 14:09 Dose: 0 mls/hr Documented by: [id number] Admin: 05/01/21 14:07 Dose: 80 mls/hr Documented by: [id number] Pantoprazole Sodium 40 mg/ (Syringe) 10 mls @ 5 mls/min IV BID@0900,2100 [facility] Stop: 05/31/21 12:44 Last Admin: 05/02/21 08:23 Dose: 5 mls/min Documented by: [id number] Admin: 05/01/21 20:29 Dose: 5 mls/min Documented by: [id number] Admin: 05/01/21 13:38 Dose: 5 mls/min Documented by: [id number] Dextrose/Sodium Chloride (D5w And Nss) 1,000 mls @ 80 mls/hr IV .[id number] Stop: 05/31/21 12:29 Last Admin: 05/01/21 17:11 Dose: Not Given Documented by: [id number] Discharge Plan Visit Data Chief Complaint: GI Assessment Stated Complaint: SOMETHING STUCK IN THROAT/REFERRED BY DR SOLARES ED Provider: Jonathan Costa Discharge Problem: Abnormal barium swallow, TRIP (acute kidney injury), Dysphagia Patient Disposition: Admitted As Inpatient Discharge Instructions Interventions: ED Discharge Assessment Last Done: 05/01/21 14:07 Discharge Problem: Dysphagia Qualifiers: Dysphagia type: unspecified Qualified Code(s): R13.10 - Dysphagia, unspecified
== END 2021-05-02 11:15 | disposition home or self-care (01) ==
LOC: ED 10:35 → ENDO 14:07 → 3N 14:07 → SUATTDRO 14:08
DX: N17.9 Acute kidney failure, unspecified; I10 Essential (primary) hypertension; E78.5 Hyperlipidemia, unspecified; K31.7 Polyp of stomach and duodenum; Z79.899 Other long term (current) drug therapy; R93.3 Abnormal findings on diagnostic imaging of other parts of digestive tract; R73.03 Prediabetes; N40.0 Benign prostatic hyperplasia without lower urinary tract symptoms; K21.9 Gastro-esophageal reflux disease without esophagitis; R13.10 Dysphagia, unspecified; T18.128A Food in esophagus causing other injury, initial encounter